=== PATIENT | female | born 1995 | race Caucasian/White ===

== ENCOUNTER 2017-01-18 05:06 | Inpatient (IN) | payer MEDICARE, OTHER ==
[~2017-01-18] VITALS: Ht 160 cm; Wt 87.0 kg
--- NOTE | ~2017-01-18 | OR ---
[facility] [address] [place], [place] [address] Draft DATE OF PROCEDURE: 01/18/17 PREOPERATIVE DIAGNOSES Intrauterine at 39 and 1. Desires primary elective section. Anxiety and bipolar in . POSTOPERATIVE DIAGNOSES Intrauterine at 39 and 1. Desires primary elective section. Anxiety and bipolar in . Breech presentation. PROCEDURE PERFORMED: Primary low-transverse section. ANESTHESIA: Spinal. ESTIMATED BLOOD LOSS: 700 mL. PRIMARY SURGEON: Yaneth Calderon DO [employer] HELICOPTER: Car Garza MD COMPLICATIONS: None. FINDINGS Viable male with 's of 7 and 8 at one and five minutes respectively. Normal uterus, tubes, and ovaries bilaterally. INDICATIONS Ms. Desai is a pleasant 21-year-old with IUP at 39 and 1 week's gestation who presents for scheduled primary elective . is complicated by bipolar and anxiety, severe PUPPS on steroid taper. The patient desires a primary low-transverse section as she is very concerned that "something bad will happen during labor" and a "history of no one in my family being able to deliver vaginally." Risks, benefits, alternatives were discussed in detail with the patient. Risks included but are not limited to bleeding, infection, injury to surrounding tissue, and increased risk in future pregnancies due to her delivery. The patient understands and wishes to proceed with the procedure. Of note, the patient presented with slightly elevated blood pressures preoperatively with max systolic blood pressure of 147. TECHNIQUE PATIENT NAME: EUGENIA DESAI OPERATIVE REPORT DATE OF : 89 PHYSICIAN: YANETH CALDERON DO REPORT #: [id number] REPORT IS CONFIDENTIAL AND NOT TO BE RELEASED WITHOUT AUTHORIZATION [facility] [address] [place], [place] [address] Draft The patient was taken the operating room where a time-out was performed to confirm correct patient, correct procedure. Spinal anesthesia was adequately established. The patient was prepped and draped in the supine position with a bump in her right hip. The skin was tested to ensure that the spinal was adequate and the patient did have some tenderness in one area in the left lower quadrant. The spinal was allowed to set up for a few more minutes and the patient reported no pain after repeat testing. A Pfannenstiel skin incision was made with surgical scalpel and carried down to and through the subcu layer. The fascia was nicked in the midline and the fascial incision was extended bilaterally using Cruz scissors. At this point, the patient became more tender on the left side and additional pain medications were given per Anesthesia. Please see their record for additional details. The rectus muscles were divided in the midline and the peritoneum was grasped with hemostats, incised sharply and peritoneal incision was extended cephalad and caudad using blunt and sharp dissection. An Lanre self-retractor was placed and the lower uterine segment identified. Hysterotomy was performed using a surgical scalpel and extended bilaterally using blunt dissection. The surgeon's hand was placed into the uterine cavity and the buttocks was noted to be the presenting part. The buttocks was elevated in the abdomen and delivered with gentle fundal pressure. The arms delivered spontaneously and the remainder of the delivered spontaneously. Upon delivery, the was vigorous and cried. Oral and nasopharynx were bulb suctioned. The cord was doubly clamped and cut and the was handed to the awaiting pediatric team for further care. Cord blood was obtained for routine analysis a n d the placenta was expressed intact with a centrally inserted 3 vessel cord. The uterus was cleared of remaining products of conception and clot and was repaired using 0 Vicryl in a running locked suture. A second imbricating suture of 0 Vicryl was applied with good hemostasis and imbrication. Small oozing was noted in the midline. This was made hemostatic using 0 Vicryl in a bkmqep-bj-mupoo suture. The patient did become more uncomfortable at this portion of the procedure in the left lower quadrant and again, Anesthesia gave the patient additional pain medication. At this point of the procedure, it was noted that the patient continued to have some elevated blood pressures and order was placed for preeclamptic profile and the patient did receive Labetalol 2 0 mg IV x1. The pericolic gutters were cleared of all remaining clots. The uterus, tubes, and ovaries were identified and found to be normal, and the peritoneum was reapproximated using 2-0 Vicryl in a running nonlocked manner after removing the Lanre uterine retractor. The rectus muscle was reapproximated in the midline using 3 interrupted sutures of 0 Vicryl. The rectus muscle was noted to be hemostatic and ACell powder was applied. The fascia was reapproximated using 0 Vicryl in a running nonlocked manner. The subcutaneous tissue was reapproximated using 2-0 Vicryl in a running suture and skin was reapproximated using 3-0 Quill suture with good hemostasis and cosmesis. The uterus was Crede'd for scant blood and the patient was then taken to the PACU in good and stable condition with her . Sponge, needle, and instrument count was correct x2 at the end of the procedure. Dr. Garza was present and participated in all portions of procedure. PATIENT NAME: GISELLEBRIANTRACI HILL OPERATIVE REPORT DATE OF : 89 PHYSICIAN: YANETH CALDERON DO REPORT #: [id number] REPORT IS CONFIDENTIAL AND NOT TO BE RELEASED WITHOUT AUTHORIZATION [address] [place], [place] [address] Draft Yaneth Calderon DO JDW/Modl /[id number] PATIENT NAME: EUGENIA DESAI OPERATIVE REPORT DATE OF : 89 PHYSICIAN: YANETH CALDERON DO REPORT #: [id number] REPORT IS CONFIDENTIAL AND NOT TO BE RELEASED WITHOUT AUTHORIZATION
--- NOTE | ~2017-01-18 | OR ---
[facility] [address] [place], [place] [address] Draft DATE OF PROCEDURE: 01/18/17 PROCEDURES Exploratory laparotomy and evacuation of rectus sheath hematoma. PREOPERATIVE DIAGNOSES Status post primary low transverse section, postoperative day #0. Abdominal hematoma. Acute blood loss anemia. Preeclampsia with severe features. POSTOPERATIVE DIAGNOSES Status post primary low transverse section, postoperative day #0. Abdominal hematoma. Acute blood loss anemia. Preeclampsia with severe features. PRIMARY SURGEON: Yaneth Calderon D.O. TRANSFER SPECIALIST: Car Garza M.D. ESTIMATED BLOOD LOSS: 500 mL. ANESTHESIA: General. COMPLICATIONS: None. FINDINGS The patient with large blood clot by CT, 17 x 13 cm. This hematoma was between the rectus sheath and the fascia. Upon taking down the fascia, a small perforating artery in the belly of the rectus was noted to be pumping. This was made hemostatic. The remainder of the abdomen and pelvis was hemostatic. INDICATIONS Ms. Desai is a pleasant 21-year-old G1, now P1 female, who delivered via primary low transverse section earlier in the day. The delivery was uncomplicated other than the patient having some intraoperative pain from a spinal with incomplete coverage of the left lower quadrant. Postoperatively, the patient developed preeclampsia with severe features with maximum systolic blood pressures into the 170s. She received labetalol IV x3 doses with the last dose approximately 9:30 in the morning. She was started on magnesium, blood pressures improved and urine output was adequate. The patient continued to have controlled blood pressures, good urine output, and no PATIENT NAME: EUGENIA DESAI OPERATIVE REPORT DATE OF : 89 PHYSICIAN: YANETH CALDERON DO REPORT #: [id number] REPORT IS CONFIDENTIAL AND NOT TO BE RELEASED WITHOUT AUTHORIZATION [facility] [address] [place], [place] [address] Draft tachycardia until early in the afternoon when she developed some hypotension. Labs were drawn that showed a precipitous drop in hemoglobin, and a CT was performed that demonstrated a large hematoma in the abdominal wall. The patient was consented for exploratory laparotomy with evacuation of hematoma. The patient did have a 2nd IV placed and 4 units of packed red blood cells were typed and crossed. Risks, benefits, alternatives were discussed in detail with the patient who understands and wishes to proceed with the procedure. TECHNIQUE The patient was taken to the operating room. A time-out was performed to confirm correct patient and correct procedure. General anesthesia was adequately established. The patient was prepped and draped in the supine position. Ancef 2 g was given per SCIP protocol and ICPs were on and running. No heparin was indicated given the acute bleed. After general anesthesia was adequately established, surgical scalpel was used to ta k e down the sutures from the prior Pfannenstiel skin incision and the wound was explored. This was taken down to the fascia and no bleeding was noted. The fascia was opened along the prior incision and a large traumatic hematoma was immediately encountered. This was gently removed and a perforating abdominal rectus artery is noted to be actively bleeding. This was clamped with a hemostat and made hemostatic with a fixdpm-uz-lkigz of 0 chromic suture. The rectus was then irrigated and remainder of clot was evacuated. Detailed examination of the surgical wound was then performed. Some small oozing was noted from the border of the rectus and the fascia of the left superior portion of the Yaneth Calderon DO JDW/Modl /[id number] PATIENT NAME: EUGENIA DESAI OPERATIVE REPORT DATE OF : 89 PHYSICIAN: YANETH CALDERON DO REPORT #: [id number] REPORT IS CONFIDENTIAL AND NOT TO BE RELEASED WITHOUT AUTHORIZATION
--- OUTSIDE RECORDS SUMMARY | ~2017-01-18 | XMS ---
Demographics + + + | Address | [address] | | | [place] [address] | + + + | Preferred Language | Unknown | + + + | Marital Status | Unknown | + + + | Mosque Affiliation | Unknown | + + + | Race | Unknown | + + + | Ethnic Group | Unknown | + + + Author + + + | Author | [facility] | + + + | Organization | [facility] | + + + | Address | [address] | | | [place] [address] | + + + | Phone | | + + + Care Team Providers + + + + | Care Newcomer Hostess Name | Role | Phone | + + + + Unavailable | Unavailable | + + + + PROBLEMS +---------+ + + +--------+ + + | Type | Condition | ICD9-CM | [id number] | Onset | Condition | SNOMED | | | | Code | Code | Dates | Status | Code | +---------+ + + +--------+ + + | Problem | Asthma | 493.92 | | | Active | [id number] | | | unpecified | | | | | | | | with | | | | | | | | acute | | | | | | | | exacerbati | | | | | | | | on | | | | | | +---------+ + + +--------+ + + | Problem | Encounter | | Z34.00 | | Active | 469304283 | | | for | | | | | | | | supervisio | | | | | | | | n of | | | | | | | | normal | | | | | | | | first | | | | | | | | , | | | | | | | | | | | | | | | | unspecifie | | | | | | | | d | | | | | | | | trimester | | | | | | +---------+ + + +--------+ + + | Problem | Asthma | | J45.909 | | Active | 076484217 | +---------+ + + +--------+ + + | Problem | Fibrocysti | 610.1 | | | Active | 96663423 | | | c disease | | | | | | | | of breast | | | | | | +---------+ + + +--------+ + + | Problem | Polycystic | 256.4 | | | Active | 27848497 | | | ovarian | | | | | | | | disease | | | | | | +---------+ + + +--------+ + + | Problem | Anxiety | | F41.9 | | Active | 786477691 | | | and | | | | | | | | depression | | | | | | +---------+ + + +--------+ + + | Problem | History of | Z87.898 | | | Active | 301089233 | | | vertigo | | | | | | +---------+ + + +--------+ + + ALLERGIES No Information SOCIAL HISTORY Never Assessed PLAN OF CARE VITAL SIGNS MEDICATIONS Unknown Medications RESULTS No Results PROCEDURES No Known procedures IMMUNIZATIONS No Known Immunizations MEDICAL (GENERAL) HISTORY + + +------+ | Type | Description | Date | + + +------+ | Medical History | Bipolar/Anxiety/Depression | | + + +------+ | Medical History | Polycystic Ovarian Syndrome | | + + +------+ | Medical History | asthma | | + + +------+ | Medical History | fibromyalgia | | + + +------+ | Medical History | Migraine | | + + +------+ | Medical History | Heart palpitations | | + + +------+ | Hospitalization History | Mental Health | | + + +------+"
--- OUTSIDE RECORDS SUMMARY | ~2017-01-18 | XMS ---
Demographics + + + | Address | [address] | | | [place] [address] | + + + | Preferred Language | Unknown | + + + | Marital Status | Unknown | + + + | Quaker Affiliation | Unknown | + + + | Race | Unknown | + + + | Ethnic Group | Unknown | + + + Author + + + | Author | [facility] | + + + | Organization | [facility] | + + + | Address | [address] | | | [place] [address] | + + + | Phone | | + + + Care Team Providers + + + + | Care Braddisher Name | Role | Phone | + + + + Unavailable | Unavailable | + + + + PROBLEMS +---------+ + + +--------+ + + | Type | Condition | ICD9-CM | HSX42-TF | Onset | Condition | SNOMED | | | | Code | Code | Dates | Status | Code | +---------+ + + +--------+ + + | Problem | Asthma | 493.92 | | | Active | [id number] | | | unpecified | | | | | | | | with | | | | | | | | acute | | | | | | | | exacerbati | | | | | | | | on | | | | | | +---------+ + + +--------+ + + | Problem | Encounter | | Z34.00 | | Active | 422027802 | | | for | | | [...] | | J45.909 | | Active | 260821311 | +---------+ + + +--------+ + + | Problem | Fibrocysti | 610.1 | | | Active | 89854502 | | | c disease | | | | | | | | of breast | | | | | | +---------+ + + +--------+ + + | Problem | Polycystic | 256.4 | | | Active | 02032009 | | | ovarian | | | | | | | | disease | | | | | | +---------+ + + +--------+ + + | Problem | Anxiety | | F41.9 | | Active | 838477916 | | | and | | | | | | | | depression | | | | | | +---------+ + + +--------+ + + | Problem | History of | Z87.898 | | | Active | 526901998 | | | vertigo | | | | | | +---------+ + + +--------+ + + ALLERGIES Unknown Allergies SOCIAL HISTORY No smoking Hx information available PLAN OF CARE VITAL SIGNS MEDICATIONS Unknown Medications RESULTS No Results PROCEDURES No Known procedures IMMUNIZATIONS No Known Immunizations"
--- OUTSIDE RECORDS SUMMARY | ~2017-01-18 | XMS ---
Demographics + + + | Address | [address] | | | [place] [address] | + + + | Preferred Language | Unknown | + + + | Marital Status | Unknown | + + + | Samaritan Affiliation | Unknown | + + + | Race | Unknown | + + + | Ethnic Group | Unknown | + + + Author + + + | Author | [facility] | + + + | Organization | [facility] | + + + | Address | [address] | | | [place] [address] | + + + | Phone | | + + + Care Team Providers + + + + | Care Relationship Counselor Name | Role | Phone | + + + + Unavailable | Unavailable | + + + + PROBLEMS +---------+ + + +--------+ + + | Type | Condition | ICD9-CM | LFM67-PG | Onset | Condition | SNOMED | | | | Code | Code | Dates | Status | Code | +---------+ + + +--------+ + + | Problem | Asthma | 493.92 | | | Active | 085003536 | | | unpecified | | | | | | | | with | | | | | | | | acute | | | | | | | | exacerbati | | | | | | | | on | | | | | | +---------+ + + +--------+ + + | Problem | Encounter | | Z34.00 | | Active | 160007022 | | | for | | | [...] | | J45.909 | | Active | 111210881 | +---------+ + + +--------+ + + | Problem | Fibrocysti | 610.1 | | | Active | 41414235 | | | c disease | | | | | | | | of breast | | | | | | +---------+ + + +--------+ + + | Problem | Polycystic | 256.4 | | | Active | 13139801 | | | ovarian | | | | | | | | disease | | | | | | +---------+ + + +--------+ + + | Problem | Anxiety | | F41.9 | | Active | 664786871 | | | and | | | | | | | | depression | | | | | | +---------+ + + +--------+ + + | Problem | History of | Z87.898 | | | Active | 029157436 | | | vertigo | | | | | | +---------+ + + +--------+ + + ALLERGIES Unknown Allergies SOCIAL HISTORY No smoking Hx information available PLAN OF CARE VITAL SIGNS MEDICATIONS Unknown Medications RESULTS No Results PROCEDURES No Known procedures IMMUNIZATIONS No Known Immunizations"
--- OUTSIDE RECORDS SUMMARY | ~2017-01-18 | XMS ---
Demographics + + + | Address | [address] | | | [place] [address] | + + + | Preferred Language | Unknown | + + + | Marital Status | Unknown | + + + | Pentecostalism Affiliation | Unknown | + + + | Race | Unknown | + + + | Ethnic Group | Unknown | + + + Author + + + | Author | [facility] | + + + | Organization | [facility] | + + + | Address | [address] | | | [place] [address] | + + + | Phone | | + + + Care Team Providers + + + + | Care Feed And Farm Management Adviser Name | Role | Phone | + + + + Unavailable | Unavailable | + + + + PROBLEMS +---------+ + + +--------+ + + | Type | Condition | ICD9-CM | [id number] | Onset | Condition | SNOMED | | | | Code | Code | Dates | Status | Code | +---------+ + + +--------+ + + | Problem | Asthma | 493.92 | | | Active | 634918518 | | | unpecified | | | | | | | | with | | | | | | | | acute | | | | | | | | exacerbati | | | | | | | | on | | | | | | +---------+ + + +--------+ + + | Problem | Encounter | | Z34.00 | | Active | 654643506 | | | for | | | [...] | | J45.909 | | Active | 295437570 | +---------+ + + +--------+ + + | Problem | Fibrocysti | 610.1 | | | Active | 20855583 | | | c disease | | | | | | | | of breast | | | | | | +---------+ + + +--------+ + + | Problem | Polycystic | 256.4 | | | Active | 69048997 | | | ovarian | | | | | | | | disease | | | | | | +---------+ + + +--------+ + + | Problem | Anxiety | | F41.9 | | Active | 774677893 | | | and | | | | | | | | depression | | | | | | +---------+ + + +--------+ + + | Problem | History of | Z87.898 | | | Active | 537418710 | | | vertigo | | | | | | +---------+ + + +--------+ + + ALLERGIES Unknown Allergies SOCIAL HISTORY No smoking Hx information available PLAN OF CARE VITAL SIGNS MEDICATIONS Unknown Medications RESULTS No Results PROCEDURES No Known procedures IMMUNIZATIONS No Known Immunizations"
--- OUTSIDE RECORDS SUMMARY | ~2017-01-18 | XMS ---
Demographics + + + | Address | [address] | | | [place] [address] | + + + | Preferred Language | Unknown | + + + | Marital Status | Unknown | + + + | Hinduism Affiliation | Unknown | + + + | Race | Unknown | + + + | Ethnic Group | Unknown | + + + Author + + + | Author | [facility] | + + + | Organization | [facility] | + + + | Address | [address] | | | [place] [address] | + + + | Phone | | + + + Care Team Providers + + + + | Care Underwear Finisher Name | Role | Phone | + + + + Unavailable | Unavailable | + + + + PROBLEMS +---------+ + + +--------+ + + | Type | Condition | ICD9-CM | YPR72-ZA | Onset | Condition | SNOMED | | | | Code | Code | Dates | Status | Code | +---------+ + + +--------+ + + | Problem | Asthma | 493.92 | | | Active | 323746608 | | | unpecified | | | | | | | | with | | | | | | | | acute | | | | | | | | exacerbati | | | | | | | | on | | | | | | +---------+ + + +--------+ + + | Problem | Encounter | | Z34.00 | | Active | 745845616 | | | for | | | [...] | | J45.909 | | Active | 885976626 | +---------+ + + +--------+ + + | Problem | Fibrocysti | 610.1 | | | Active | 55293088 | | | c disease | | | | | | | | of breast | | | | | | +---------+ + + +--------+ + + | Problem | Polycystic | 256.4 | | | Active | 71963179 | | | ovarian | | | | | | | | disease | | | | | | +---------+ + + +--------+ + + | Problem | Anxiety | | F41.9 | | Active | 392222701 | | | and | | | | | | | | depression | | | | | | +---------+ + + +--------+ + + | Problem | History of | Z87.898 | | | Active | 959500176 | | | vertigo | | | | | | +---------+ + + +--------+ + + ALLERGIES Unknown Allergies SOCIAL HISTORY No smoking Hx information available PLAN OF CARE VITAL SIGNS MEDICATIONS Unknown Medications RESULTS No Results PROCEDURES No Known procedures IMMUNIZATIONS No Known Immunizations"
--- OUTSIDE RECORDS SUMMARY | ~2017-01-18 | XMS ---
Demographics + + + | Address | [address] | | | [place] [address] | + + + | Preferred Language | Unknown | + + + | Marital Status | Unknown | + + + | Sabianism Affiliation | Unknown | + + + | Race | Unknown | + + + | Ethnic Group | Unknown | + + + Author + + + | Author | [facility] | + + + | Organization | [facility] | + + + | Address | [address] | | | [place] [address] | + + + | Phone | | + + + Care Team Providers + + + + | Care Economics Department Chair Name | Role | Phone | + + + + Unavailable | Unavailable | + + + + PROBLEMS +---------+ + + +--------+ + + | Type | Condition | ICD9-CM | STS16-CH | Onset | Condition | SNOMED | | | | Code | Code | Dates | Status | Code | +---------+ + + +--------+ + + | Problem | Asthma | 493.92 | | | Active | 960841165 | | | unpecified | | | | | | | | with | | | | | | | | acute | | | | | | | | exacerbati | | | | | | | | on | | | | | | +---------+ + + +--------+ + + | Problem | Encounter | | Z34.00 | | Active | 596757249 | | | for | | | [...] | | J45.909 | | Active | 415561202 | +---------+ + + +--------+ + + | Problem | Fibrocysti | 610.1 | | | Active | 11146260 | | | c disease | | | | | | | | of breast | | | | | | +---------+ + + +--------+ + + | Problem | Polycystic | 256.4 | | | Active | 18772089 | | | ovarian | | | | | | | | disease | | | | | | +---------+ + + +--------+ + + | Problem | Anxiety | | F41.9 | | Active | 860149489 | | | and | | | | | | | | depression | | | | | | +---------+ + + +--------+ + + | Problem | History of | Z87.898 | | | Active | 179132758 | | | vertigo | | | | | | +---------+ + + +--------+ + + ALLERGIES Unknown Allergies SOCIAL HISTORY No smoking Hx information available PLAN OF CARE VITAL SIGNS MEDICATIONS Unknown Medications RESULTS No Results PROCEDURES No Known procedures IMMUNIZATIONS No Known Immunizations"
--- OUTSIDE RECORDS SUMMARY | ~2017-01-18 | XMS ---
Demographics + + + | Address | [address] | | | [place] [address] | + + + | Preferred Language | Unknown | + + + | Marital Status | Unknown | + + + | Zoroastrian Affiliation | Unknown | + + + | Race | Unknown | + + + | Ethnic Group | Unknown | + + + Author + + + | Author | [facility] | + + + | Organization | [facility] | + + + | Address | [address] | | | [place] [address] | + + + | Phone | | + + + Care Team Providers + + + + | Care Manager Of Information Name | Role | Phone | + + + + Unavailable | Unavailable | + + + + PROBLEMS +---------+ + + +--------+ + + | Type | Condition | ICD9-CM | [id number] | Onset | Condition | SNOMED | | | | Code | Code | Dates | Status | Code | +---------+ + + +--------+ + + | Problem | Asthma | 493.92 | | | Active | [id number] | | | unpecified | | | | | | | | with | | | | | | | | acute | | | | | | | | exacerbati | | | | | | | | on | | | | | | +---------+ + + +--------+ + + | Problem | Encounter | | Z34.00 | | Active | [id number] | | | for | | | [...] | | J45.909 | | Active | 795642600 | +---------+ + + +--------+ + + | Problem | Fibrocysti | 610.1 | | | Active | 59986071 | | | c disease | | | | | | | | of breast | | | | | | +---------+ + + +--------+ + + | Problem | Polycystic | 256.4 | | | Active | 84893233 | | | ovarian | | | | | | | | disease | | | | | | +---------+ + + +--------+ + + | Problem | Anxiety | | F41.9 | | Active | 488345848 | | | and | | | | | | | | depression | | | | | | +---------+ + + +--------+ + + | Problem | History of | Z87.898 | | | Active | 546033710 | | | vertigo | | | | | | +---------+ + + +--------+ + + ALLERGIES Unknown Allergies SOCIAL HISTORY No smoking Hx information available PLAN OF CARE VITAL SIGNS MEDICATIONS Unknown Medications RESULTS No Results PROCEDURES No Known procedures IMMUNIZATIONS No Known Immunizations"
--- OUTSIDE RECORDS SUMMARY | ~2017-01-18 | XMS ---
Demographics + + + | Address | [address] | | | [place] [address] | + + + | Preferred Language | Unknown | + + + | Marital Status | Unknown | + + + | Druze Affiliation | Unknown | + + + | Race | Unknown | + + + | Ethnic Group | Unknown | + + + Author + + + | Author | [facility] | + + + | Organization | [facility] | + + + | Address | [address] | | | [place] [address] | + + + | Phone | | + + + Care Team Providers + + + + | Care Stock Worker Name | Role | Phone | + + + + Unavailable | Unavailable | + + + + PROBLEMS +---------+ + + +--------+ + + | Type | Condition | ICD9-CM | [id number] | Onset | Condition | SNOMED | | | | Code | Code | Dates | Status | Code | +---------+ + + +--------+ + + | Problem | Asthma | 493.92 | | | Active | [id number] | | | unpecified | | | | | | | | with | | | | | | | | acute | | | | | | | | exacerbati | | | | | | | | on | | | | | | +---------+ + + +--------+ + + | Problem | Encounter | | Z34.00 | | Active | 204254001 | | | for | | | [...] | | J45.909 | | Active | 203890628 | +---------+ + + +--------+ + + | Problem | Fibrocysti | 610.1 | | | Active | 58018031 | | | c disease | | | | | | | | of breast | | | | | | +---------+ + + +--------+ + + | Problem | Polycystic | 256.4 | | | Active | 93798059 | | | ovarian | | | | | | | | disease | | | | | | +---------+ + + +--------+ + + | Problem | Anxiety | | F41.9 | | Active | 885200172 | | | and | | | | | | | | depression | | | | | | +---------+ + + +--------+ + + | Problem | History of | Z87.898 | | | Active | 262942904 | | | vertigo | | | | | | +---------+ + + +--------+ + + ALLERGIES Unknown Allergies SOCIAL HISTORY No smoking Hx information available PLAN OF CARE VITAL SIGNS MEDICATIONS + + + + + + + +--------+ | Medicati | Instruct | Dosage | Frequenc | Start | End Date | Duration | Status | | on | ions | | y | Date | | | | + + + + + + + +--------+ | Metronid | Orally | 1 tablet | 12h | 28 Oliver, | 5 Charles, | 7 day(s) | Active | | azole | Twice a | | | 2017 | 2017 | | | | 500 MG | day | | | | | | | + + + + + + + +--------+ RESULTS No Results PROCEDURES No Known procedures IMMUNIZATIONS No Known Immunizations"
[~2017-01-18 05:06] MED LIST: ACETAMINOPHEN-1 EAC1 PO; BUSPIRONE HCL10 MG PO; CLARITIN10 M2 PO; CLONIDINE HCL0.2 MG PO; EFFEXOR XR75 MG PO; HYDROXYZINE PAM25 MG PO; IBUPROFEN600 MG PO; INTROVALE1 EACH PO; LEXAPRO PO; OMEGA 3 FISH O1 EACH PO; PAIN & FEVER500 MG PO; PROVENTIL HFA6.7 GM INH; RESPIRADOL PO; SALINE NOSE SPR45 ML NAS; TRAZODONE HCL100 MG; TRAZODONE HCL100 MG PO; VENLAFAXINE HC150 MG PO; VITAMIN D31000 UNIT PO
--- NOTE | 2017-01-18 08:47 | NUR ---
01/18/17 0847 Paige Gonzalez 0807-PATIENT ARRIVED TO PACU ON RA O2 SAT 100% PATIENT AWAKE PAIN 4/10 REPORTS COMFORTABLE. SPINAL LEVEL AT T10 BUT PATIENT ABLE TO WIGGLE TOES. PATIENT BABY. BP PARAMETERS SET BY DR. GARCIA NOTIFY IF SBP GREATER THAN 160 AND DBP GREATER THAN 110. FBC RN AT BEDSIDE.
--- NOTE | 2017-01-18 19:12 | NUR ---
01/18/171911 Paige Gonzalez 185-PATIENT ARRIVED TO PACU ON 8L MASK O2 SAT 100% PATIENTS ABDOMEN CDI WITH GAUZE AND ESDRAS LUIGI PAD IN PLACE. PATIENT COUGHING THICK WHITE SECRETIONS, SUCTIONED REPORTS SORE THROATED EDUCATED ON GENERAL ANESTHETIC WITH TUBE. PER DR. GARCIA RESTART MAGNESIUM IV AND LR WITH PITOCIN TO RUN TO A TOTAL OF 100ML/HR COMBINED. 1904-PATIENT REPORTS PAIN 5/10 MEDICATED WITH 0.4 MG DILAUDID IVP.
--- NOTE | 2017-01-19 09:49 | NUR ---
HOME MEDICATIONS REVIEWED FROM FB. PATIENT BROUGHT IN HOME MEDICATIONS LABELED METHYLPREDNISOLONE TABS AND VENLAFAXINE CAPS. VENLAFAXINE BOTTLE , FROM HER PREVIOUS NOT CURRENT PHARMACY, THE DOSE LISTED ON THE BOTTLE WAS NOT CURRENT, AND INSIDE THE BOTTLE THERE WERE UNMARKED TABS NOT CAPS. OBTAINED CURRENT SAFEWAY MEDICATION REFILL HISTORY. TELEPHONE CALL TO DR GARCIA, OBTAINED A NEW TELEPHONE ORDER FOR CURRENT DOSE 187.5 MG DAILY. PATIENT CONFIRMED VERBALLY THAT THIS IS HER CURRENT DOSE.
== END 2017-01-22 11:15 | disposition home or self-care (01) | DRG 765 ==
LOC: FBC 05:06
PROVIDERS: ADMIT Obstetrics & Gynecology
PROC: 10D00Z1 Extraction of Products of Conception, Low, Open Approach (ICD-10-PCS; principal; 2017-01-18 06:45)
PROC: 0W3F0ZZ Control Bleeding in Abdominal Wall, Open Approach (ICD-10-PCS; 2017-01-19)
DX: O14.24 HELLP syndrome, complicating childbirth (principal); D62 Acute posthemorrhagic anemia; Z3A.39 39 weeks gestation of pregnancy; Z37.0 Single live birth; O32.1XX0 Maternal care for breech presentation, not applicable or unspecified; F31.9 Bipolar disorder, unspecified; O99.344 Other mental disorders complicating childbirth; F41.9 Anxiety disorder, unspecified; O90.2 Hematoma of obstetric wound
CPT/HCPCS: 00840; 01961; 36415; 36430; 74177; 80053; 82570; 83735; 84156; 84550; 85025; 85027; 86850; 86900; 86901; 86920; C1763; J0330; J0690; J1100; J1170; J1885; J2250; J2270; J2274; J2370; J2405; J2590; J2704; J3010; J3475; J7030; J7120; J7509; P9016; Q9967

== ENCOUNTER 2017-10-31 18:23 | Emergency (ER) | payer MEDICARE, OTHER ==
[~2017-10-31] VITALS: Ht 160 cm; Wt 86.6 kg
== END 2017-10-31 19:36 | disposition home or self-care (01) ==
LOC: ED 18:23
DX: Z76.0 Encounter for issue of repeat prescription (principal); F31.9 Bipolar disorder, unspecified; J45.909 Unspecified asthma, uncomplicated; F32.9 Major depressive disorder, single episode, unspecified; F43.10 Post-traumatic stress disorder, unspecified; F41.9 Anxiety disorder, unspecified; Z87.891 Personal history of nicotine dependence; Z79.899 Other long term (current) drug therapy; Z88.8 Allergy status to other drugs, medicaments and biological substances
CPT/HCPCS: 99282

== ENCOUNTER 2018-05-25 15:32 | Emergency (ER) | payer MEDICARE, OTHER ==
[~2018-05-25] VITALS: Ht 160 cm; Wt 86.6 kg
[~2018-05-25 15:32] MED LIST changes: +CLONIDINE HCL0.1 MG PO; +DIFLUCAN150 MG PO; +KEFLEX500 MG PO
[2018-05-25] MEDS ORDERED: EFFEXOR XR75 MG PO (16:08)
[2018-05-25] MEDS ORDERED: CIPRO500 MG PO (16:44)
== END 2018-05-25 17:05 | disposition home or self-care (01) ==
LOC: ED 15:32
DX: N39.0 Urinary tract infection, site not specified (principal); F20.9 Schizophrenia, unspecified; F31.9 Bipolar disorder, unspecified; F43.10 Post-traumatic stress disorder, unspecified; F41.9 Anxiety disorder, unspecified; F17.200 Nicotine dependence, unspecified, uncomplicated; Z88.8 Allergy status to other drugs, medicaments and biological substances; Z79.899 Other long term (current) drug therapy
CPT/HCPCS: 81001; 99283

== ENCOUNTER 2018-07-23 09:05 | Day surgery (SDC) | payer MEDICARE, OTHER ==
[~2018-07-23] VITALS: Ht 160 cm; Wt 79.4 kg
--- NOTE | ~2018-07-23 | OR ---
[facility] [address] [place], [place] [address] Draft DATE OF OPERATION: 07/23/2018 SURGEON: Emigdio Tom MD PREOPERATIVE DIAGNOSIS: Chronic tonsillitis. POSTOPERATIVE DIAGNOSIS: Chronic tonsillitis. PROCEDURE PERFORMED: Tonsillectomy. ANESTHESIA: General orotracheal; SIMA, Cielo August. PREOPERATIVE HISTORY: Eugenia is a 22-year-old young lady with chronic tonsillitis and tonsillithiasis, taken to the operating for the above-mentioned procedures. PROCEDURE AND FINDINGS: After informed consent, the patient was taken to the operating room, placed in supine position where general orotracheal anesthesia was induced the patient procedure were verified headlight. The McIvor mouth gag was placed into suspension. Headlight exam of the pharynx showed moderately obstructive hypertrophic tonsils with thick tonsils, chronic inflammation. The left tonsil was grasped with a tenaculum, retracted medially, and removed from its fossa with mucosal sparing incision with Coblation. Field was dry after the procedure. Same procedure on the right tonsil. Tonsils were sent to pathology. Reinspection of the tonsil fossa showed no bleeding points. The pharynx was suctioned with clear of blood and secretions. The mouth gag was removed. The patient was awakened, extubated, transported to recovery room in good condition. No complications. BLOOD LOSS: Minimal. SPECIMEN: To pathology. No drains. PATIENT NAME: EUGENIA DESAI OPERATIVE REPORT DATE OF : [birth year] REPORT #: [id number] PHYSICIAN: EMIGDIO TOM MD PCP: NO PRIMARY CARE PHYSICIAN REPORT IS CONFIDENTIAL AND NOT TO BE RELEASED WITHOUT AUTHORIZATION [address] [place] [address] Draft Emigdio Tom MD /[facility] /[id number] Copies: ~ PATIENT NAME: EUGENIA DESAI OPERATIVE REPORT DATE OF : [birth year] REPORT #: [id number] PHYSICIAN: EMIGDIO TOM MD PCP: NO PRIMARY CARE PHYSICIAN REPORT IS CONFIDENTIAL AND NOT TO BE RELEASED WITHOUT AUTHORIZATION
[~2018-07-23 09:05] MED LIST changes: +CAMRESE 0.15-01 EACH PO; +CIPRO500 MG PO; +TOPAMAX200 MG PO
[2018-07-23] MEDS ORDERED: ADVIL LIQUI-GE200 MG PO (09:36)
--- NOTE | 2018-07-23 11:59 | NUR ---
07/23/18 Jason9 Paige Gonzalez 1147-PATIENT ARRIVED TO PACU ON 6L MASK NONAROUSABLE. RN HOLDING JAW TO MAINTAIN AIRWAY. SR. NO DRAINAGE NOTED FROM MOUTH. 1150-PATIENT AROUSING TO VERBAL STIMULI OPENS EYES VERY DROWSY. DENIES PAIN OR NAUSEA. DOZES BACK TO SLEEP.
--- NOTE | 2018-07-23 12:20 | NUR ---
ICED WATER AND JELLO GIVEN. FAMILY @ BEDSIDE. CALL LIGHT W/IN REACH. PATIENT TAKING SIPS OF WATER AND REPORTS INCREASED PAIN AND WINCES WITH EACH SWALLOW.
--- NOTE | 2018-07-23 13:23 | NUR ---
PATIENT REPORTS "I FEEL MUCH BETTER". PATIENT REQUESTS DC HOME. DISCHARGE INSTRUCTIONS GIVEN IN PRESENCE OF FAMILY AND BOTH VERBALIZE UNDERSTANDING. PATIENT ENCOURAGED NOT TO SMOKE FOR AT LEAST 2 WEEKS. PATIENT VERBALIZES UNDERSTANDING OF THIS AND REPORTS SHE WILL TRY AND GET SOME GUM TO HELP WITH SYMPTOMS AND HOPES TO QUIT ALTOGETHER.
[2018-07-23] MEDS ORDERED: HYDROCODONE-ACE15 M3 PO (13:38)
--- NOTE | 2018-07-23 13:44 | NUR ---
PATIENT DRESSES SELF AND TRANSFERS SELF TO AND TOLERATES THAT WELL.
== END 2018-07-23 13:40 | disposition home or self-care (01) ==
LOC: DS 09:05 → OPS 09:05 → DS 10:30 → OPS 10:30
PROVIDERS: Otolaryngology
PROC: 0C5PXZZ Destruction of Tonsils, External Approach (ICD-10-PCS; principal; 2018-07-23 10:30)
DX: J35.01 Chronic tonsillitis (principal); J45.909 Unspecified asthma, uncomplicated; F41.9 Anxiety disorder, unspecified; F17.200 Nicotine dependence, unspecified, uncomplicated; Z88.8 Allergy status to other drugs, medicaments and biological substances; Z79.899 Other long term (current) drug therapy
CPT/HCPCS: J0330; J1100; J2250; J2405; J2704; J3010; J7040; J7120

== ENCOUNTER 2018-07-30 07:16 | Emergency (ER) | payer MEDICARE, OTHER ==
[~2018-07-30] VITALS: Ht 160 cm; Wt 73.0 kg
[~2018-07-30 07:16] MED LIST changes: +ADVIL LIQUI-GE200 MG PO; +HYDROCODONE-ACE15 M3 PO
== END 2018-07-30 10:21 | disposition home or self-care (01) ==
LOC: ED 07:16
DX: J95.830 Postprocedural hemorrhage of a respiratory system organ or structure following a respiratory system procedure (principal); F20.9 Schizophrenia, unspecified; F31.9 Bipolar disorder, unspecified; J45.909 Unspecified asthma, uncomplicated; F43.10 Post-traumatic stress disorder, unspecified; F41.9 Anxiety disorder, unspecified; Z87.891 Personal history of nicotine dependence; Z88.8 Allergy status to other drugs, medicaments and biological substances; Z79.899 Other long term (current) drug therapy
CPT/HCPCS: 96374; 96375; 99283-25; J1170; J1885; J2405

== ENCOUNTER 2018-08-22 18:03 | Emergency (ER) | payer MEDICARE, OTHER ==
[~2018-08-22] VITALS: Ht 160 cm; Wt 73.0 kg
--- OUTSIDE RECORDS SUMMARY | 2018-08-22 18:06 | XMS ---
PreManage Notification: EUGENIA DESAI Security Utilization Reviewer Events No recent Security Events currently on file CRITERIA MET - [facility] - [facility] - 2 Visits in 30 Days CARE PROVIDERS There are no care providers on record at this time. Mitch has no Care Guidelines for this patient. Norma VISIT COUNT (12 MO.) 5 [facility]. TOTAL 5 NOTE: Visits indicate total known visits. ED/C VISIT TRACKING (12 MO.) 08/22/2018 18:[address] [facility] [place] TYPE: Emergency COMPLAINT: - THROAT PAIN/SWELLING 07/30/2018 07:17 [facility] [place] TYPE: Emergency COMPLAINT: - POST OP PROBLEM DIAGNOSES: - Bipolar disorder, unspecified - Postprocedural hemorrhage of a respiratory system organ or structure following a respiratory system procedure - Unspecified asthma, uncomplicated - Anxiety disorder, unspecified - Other longterm (current) drug therapy - Schizophrenia, unspecified - Allergy status to other drugs, medicaments and biological substances status - Personal history of nicotine dependence - Post-traumatic stress disorder, unspecified 05/25/2018 15:33 [facility] [place] TYPE: Emergency COMPLAINT: - POSS UTI DIAGNOSES: - Bipolar disorder, unspecified - Dysuria - Urinary tract infection, site not specified - Post-traumatic stress disorder, unspecified - Allergy status to other drugs, medicaments and biological substances status - Nicotine dependence, unspecified, uncomplicated - Anxiety disorder, unspecified - Schizophrenia, unspecified - Other longterm (current) drug therapy 02/08/2018 18:04 [facility] [place] TYPE: Emergency COMPLAINT: - POSS UTI DIAGNOSES: - Major depressive disorder, single episode, unspecified - Other local company intermodal truck driver (current) drug therapy - Urinary tract infection, site not specified - Post-traumatic stress disorder, unspecified - Dysuria - Unspecified asthma, uncomplicated - Anxiety disorder, unspecified - Allergy status to other drugs, medicaments and biological substances status 10/31/2017 18:[address] [facility] [place] TYPE: Emergency COMPLAINT: - MEDICATION REFILL DIAGNOSES: - Bipolar disorder, unspecified - Other local company intermodal truck driver (current) drug therapy - Anxiety disorder, unspecified - Encounter for issue of repeat prescription - Major depressive disorder, single episode, unspecified - Post-traumatic stress disorder, unspecified - Unspecified asthma, uncomplicated - Allergy status to other drugs, medicaments and biological substances status - Personal history of nicotine dependence INPATIENT VISIT TRACKING (12 MO.) No inpatient visits to display in this time frame [email or web address]
[2018-08-22] MEDS ORDERED: MEDROL4 MG PO (18:53)
== END 2018-08-22 19:14 | disposition home or self-care (01) ==
LOC: ED 18:03
DX: R07.0 Pain in throat (principal); F20.9 Schizophrenia, unspecified; F31.9 Bipolar disorder, unspecified; J45.909 Unspecified asthma, uncomplicated; F41.9 Anxiety disorder, unspecified; F43.10 Post-traumatic stress disorder, unspecified; Z90.89 Acquired absence of other organs; Z88.8 Allergy status to other drugs, medicaments and biological substances; Z79.899 Other long term (current) drug therapy
CPT/HCPCS: 99282

== ENCOUNTER 2018-09-23 17:55 | Emergency (ER) | payer MEDICARE, OTHER ==
[~2018-09-23] VITALS: Ht 160 cm; Wt 73.0 kg
[~2018-09-23 17:55] MED LIST changes: +MEDROL4 MG PO
--- OUTSIDE RECORDS SUMMARY | 2018-09-23 17:58 | XMS ---
PreManage Notification: EUGENIA DESAI Security Transplant Rn Events No recent Security Events currently on file CRITERIA MET - [facility] - Has Care Guidelines CARE PROVIDERS [place] COLEMAN Physician 08/23/2018-Current PHONE: Unknown Guidelines Source: [facility] Guidelines Date: 08/23/2018 Care Coordination: Receives mental health services with [facility] [facility].\T\nbsp; Please contact [facility] [facility] for mental health concerns.\T\nbsp; [place]:\T\nbsp; \T\nbsp; [place]: [phone]. Care History Medical/Surgical 08/23/2018 [facility] - PATIENT SEES DR OCASIO FOR ENT SERVICES. - PATIENT DOES HAVE A PCP - MARCO ANTONIO COLEMAN AT DR JEROME OFFICE. E.D. VISIT COUNT (12 MO.) 6 [facility] TOTAL 6 NOTE: Visits indicate total known visits. ED/UCC VISIT TRACKING (12 MO.) 09/23/2018 17:56 [facility] [place] TYPE: Emergency COMPLAINT: - FAINTING, NUMBNESS IN EXTREMITIES 08/22/2018 18:03 [facility] [place] TYPE: Emergency COMPLAINT: - THROAT PAIN/SWELLING DIAGNOSES: - Bipolar disorder, unspecified - Unspecified asthma, uncomplicated - Allergy status to other drugs, medicaments and biological substances status - Other half-way (current) drug therapy - Pain in throat - Anxiety disorder, unspecified - Schizophrenia, unspecified - Post-traumatic stress disorder, unspecified - Acute pharyngitis, unspecified - Acquired absence of other organs 07/30/2018 07:[address] [facility] [place] [place] TYPE: Emergency COMPLAINT: - POST OP PROBLEM DIAGNOSES: - Bipolar disorder, unspecified - Postprocedural hemorrhage of a respiratory system organ or structure following a respiratory system procedure - Unspecified asthma, uncomplicated - Anxiety disorder, unspecified - Other buttermaker continuous churn (current) drug therapy - Schizophrenia, unspecified - Allergy status to other drugs, medicaments and biological substances status - Personal history of nicotine dependence - Post-traumatic stress disorder, unspecified 05/25/2018 15:33 [facility] [place] TYPE: Emergency COMPLAINT: - POSS UTI DIAGNOSES: - Bipolar disorder, unspecified - Dysuria - Urinary tract infection, site not specified - Post-traumatic stress disorder, unspecified - Allergy status to other drugs, medicaments and biological substances status - Nicotine dependence, unspecified, uncomplicated - Anxiety disorder, unspecified - Schizophrenia, unspecified - Other buttermaker continuous churn (current) drug therapy 02/08/2018 18:04 [facility] [place] TYPE: Emergency COMPLAINT: - POSS UTI DIAGNOSES: - Major depressive disorder, single episode, unspecified - Other half-way (current) drug therapy - Urinary tract infection, site not specified - Post-traumatic stress disorder, unspecified - Dysuria - Unspecified asthma, uncomplicated - Anxiety disorder, unspecified - Allergy status to other drugs, medicaments and biological substances status 10/31/2017 18:[address] [facility] [place] TYPE: Emergency COMPLAINT: - MEDICATION REFILL DIAGNOSES: - Bipolar disorder, unspecified - Other half-way (current) drug therapy - Anxiety disorder, unspecified - Encounter for issue of repeat prescription - Major depressive disorder, single episode, unspecified - Post-traumatic stress disorder, unspecified - Unspecified asthma, uncomplicated - Allergy status to other drugs, medicaments and biological substances status - Personal history of nicotine dependence INPATIENT VISIT TRACKING (12 MO.) No inpatient visits to display in this time frame [email or web address]
[2018-09-23] MEDS ORDERED: VENLAFAXINE HC150 MG PO (18:31)
== END 2018-09-23 19:23 | disposition home or self-care (01) ==
LOC: ED 17:55
DX: F45.8 Other somatoform disorders (principal); F32.9 Major depressive disorder, single episode, unspecified; F41.9 Anxiety disorder, unspecified; Z90.89 Acquired absence of other organs; Z88.1 Allergy status to other antibiotic agents; Z88.8 Allergy status to other drugs, medicaments and biological substances; Z79.899 Other long term (current) drug therapy; Z87.891 Personal history of nicotine dependence
CPT/HCPCS: 99283

== ENCOUNTER 2019-02-21 19:13 | Emergency (ER) | payer MEDICARE, OTHER ==
[~2019-02-21] VITALS: Ht 157.5 cm; Wt 56.7 kg
[~2019-02-21 19:13] MED LIST changes: +BACTRIM DS TAB1 EACH PO; +PYRIDIUM200 MG PO
--- OUTSIDE RECORDS SUMMARY | 2019-02-21 19:18 | XMS ---
PreManage Notification: EUGENIA DESAI Security Registered Massage Therapist Events No recent Security Events currently on file CRITERIA MET - Group Notification - [facility] - Has Care Guidelines CARE PROVIDERS [place] COLEMAN 08/23/2018-Current PHONE: Unknown Guidelines Source: [facility] [facility] Guidelines Date: 08/23/2018 Care Coordination: Receives mental health services with [employer].\T\nbsp; Please contact [employer] for mental health concerns.\T\nbsp; [place]:\T\nbsp; [phone]\T\nbsp; [place]: [phone]. Care History Medical/Surgical 11/18/2018 [facility] - CHW CALLED PATIENT-UNABLE TO LEAVE A MESSAGE, VOICEMAIL BOX IS FULL. 10/07/2018 [facility] - PATIENT WAS LAST SEEN BY PCP IN MAY 2018. - PLEASE REFER PATIENT TO PCP OFFICE FOR ED FOLLOW UP CARE. 08/23/2018 [facility] - PATIENT SEES DR OCASIO FOR ENT SERVICES. - PATIENT DOES HAVE A PCP - MARCO ANTONIO COLEMAN AT DR JEROME OFFICE. E.D. VISIT COUNT (12 MO.) 7 [facility] TOTAL 7 NOTE: Visits indicate total known visits. ED/UCC VISIT TRACKING (12 MO.) 02/21/2019 19:13 [facility] [place] TYPE: Emergency COMPLAINT: - COUGH 11/17/2018 23:53 [facility] [place] TYPE: Emergency COMPLAINT: - URINE PROBLEM DIAGNOSES: - Dysuria - Allergy status to oth drug/meds/biol subst status - Other intermission coordinator (current) drug therapy - Urinary tract infection, site not specified 10/04/2018 23:38 [facility] [place] TYPE: Emergency COMPLAINT: - URINE PROBLEM DIAGNOSES: - Anxiety disorder, unspecified - Acquired absence of other organs - Dysuria - Personal history of nicotine dependence - Allergy status to other antibiotic agents status - Major depressive disorder, single episode, unspecified - Other intermission coordinator (current) drug therapy - Allergy status to oth drug/meds/biol subst status - Urinary tract infection, site not specified 09/23/2018 17:56 [facility] [place] TYPE: Emergency COMPLAINT: - FAINTING, NUMBNESS IN EXTREMITIES DIAGNOSES: - Allergy status to oth drug/meds/biol subst status - Major depressive disorder, single episode, unspecified - Personal history of nicotine dependence - Other somatoform disorders - Acquired absence of other organs - Anxiety disorder, unspecified - Other intermission coordinator (current) drug therapy - Dizziness and giddiness - Allergy status to other antibiotic agents status 08/22/2018 18:03 [facility] [place] TYPE: Emergency COMPLAINT: - THROAT PAIN/SWELLING DIAGNOSES: - Bipolar disorder, unspecified - Unspecified asthma, uncomplicated - Allergy status to oth drug/meds/biol subst status - Other intermission coordinator (current) drug therapy - Pain in throat - Anxiety disorder, unspecified - Schizophrenia, unspecified - Post-traumatic stress disorder, unspecified - Acute pharyngitis, unspecified - Acquired absence of other organs 07/30/2018 07:17 [facility] [place] TYPE: Emergency COMPLAINT: - POST OP PROBLEM DIAGNOSES: - Bipolar disorder, unspecified - 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 - Unspecified asthma, uncomplicated - Anxiety disorder, unspecified - Other longterm (current) drug therapy - Schizophrenia, unspecified - Allergy status to oth drug/meds/biol subst status - Personal history of nicotine dependence - Post-traumatic stress disorder, unspecified 05/25/2018 15:33 [facility] [place] TYPE: Emergency COMPLAINT: - POSS UTI DIAGNOSES: - Bipolar disorder, unspecified - Dysuria - Urinary tract infection, site not specified - Post-traumatic stress disorder, unspecified - Allergy status to oth drug/meds/biol subst status - Nicotine dependence, unspecified, uncomplicated - Anxiety disorder, unspecified - Schizophrenia, unspecified - Other intermission coordinator (current) drug therapy INPATIENT VISIT TRACKING (12 MO.) No inpatient visits to display in this time frame [email or web address]
[2019-02-21] MEDS ORDERED: TOPAMAX25 MG PO (19:42)
[2019-02-21] MEDS ORDERED: OMEPRAZOLE20 MG PO (19:42)
[2019-02-21] MEDS ORDERED: NASAL ALLERGY16.9 ML NAS (19:44)
[2019-02-21] MEDS ORDERED: URINARY PAIN97.5 MG PO (19:44)
[2019-02-21] MEDS ORDERED: PROVENTIL HFA6.7 GM INH (21:30)
[2019-02-21] MEDS ORDERED: ADULT WAL-100 MG/5 M PO (21:30)
== END 2019-02-21 21:40 | disposition home or self-care (01) ==
LOC: ED 19:13
DX: J06.9 Acute upper respiratory infection, unspecified (principal); F32.9 Major depressive disorder, single episode, unspecified; F41.9 Anxiety disorder, unspecified; Z88.3 Allergy status to other anti-infective agents; Z88.8 Allergy status to other drugs, medicaments and biological substances; Z79.899 Other long term (current) drug therapy
CPT/HCPCS: 99283

== ENCOUNTER 2019-07-08 09:08 | Emergency (ER) | payer MEDICARE, OTHER ==
[~2019-07-08] VITALS: Ht 157.5 cm; Wt 56.7 kg
[~2019-07-08 09:08] MED LIST changes: +ADULT WAL-100 MG/5 M PO; +NASAL ALLERGY16.9 ML NAS; +OMEPRAZOLE20 MG PO; +TOPAMAX25 MG PO; +URINARY PAIN97.5 MG PO
--- OUTSIDE RECORDS SUMMARY | 2019-07-08 09:12 | XMS ---
PreManage Notification: EUGENIA DESAI Security Branch Operation Evaluation Manager Events No recent Security Events currently on file CRITERIA MET - Group Notification - [facility] - Has Care Guidelines CARE PROVIDERS [place] COLEMAN Physician Editor At Large 08/23/2018-Current PHONE: Unknown ABBIE MILLER [facility] 02/24/2019-Current PHONE: [phone] [facility] Guidelines Date: 08/23/2018 Care Coordination: Receives mental health services with [facility].\T\nbsp; Please contact [employer] for mental health concerns.\T\nbsp; [facility]T\nbsp; \T\nbsp; [place]: [phone]. Care History Medical/Surgical 11/18/2018 [facility] - CHW CALLED PATIENT-UNABLE TO LEAVE A MESSAGE, VOICEMAIL BOX IS FULL. 10/07/2018 [facility] - PATIENT WAS LAST SEEN BY PCP IN MAY 2018. - PLEASE REFER PATIENT TO PCP OFFICE FOR ED FOLLOW UP CARE. 08/23/2018 [facility] - PATIENT SEES DR OCASIO FOR ENT SERVICES. - PATIENT DOES HAVE A PCP - MARCO ANTONIO COLEMAN AT DR JEROME OFFICE. Norma VISIT COUNT (12 MO.) 7 [facility] TOTAL 7 NOTE: Visits indicate total known visits. ED/UCC VISIT TRACKING (12 MO.) [facility]2019 [facility] COMPLAINT: - POSS UTI 02/21/2019 19:13 [facility] [place] TYPE: Emergency COMPLAINT: - COUGH DIAGNOSES: - Other intermediate (current) drug therapy - Anxiety disorder, unspecified - Cough - Allergy status to other anti-infective agents status - Major depressive disorder, single episode, unspecified - Acute upper respiratory infection, unspecified - Allergy status to oth drug/meds/biol subst status 11/17/2018 23:53 [facility] [place] TYPE: Emergency COMPLAINT: - URINE PROBLEM DIAGNOSES: - Dysuria - Allergy status to oth drug/meds/biol subst status - Other intermediate (current) drug therapy - Urinary tract infection, site not specified 10/04/2018 23:38 [facility] [place] TYPE: Emergency COMPLAINT: - URINE PROBLEM DIAGNOSES: - Anxiety disorder, unspecified - Acquired absence of other organs - Dysuria - Personal history of nicotine dependence - Allergy status to other antibiotic agents status - Major depressive disorder, single episode, unspecified - Other exterminator termite (current) drug therapy - Allergy status to [...] organs - Anxiety disorder, unspecified - Other intermediate (current) drug therapy - Dizziness and giddiness - Allergy status to other antibiotic agents status 08/22/2018 18:03 [facility] [place] TYPE: Emergency COMPLAINT: - THROAT PAIN/SWELLING DIAGNOSES: - Bipolar disorder, unspecified - Unspecified asthma, uncomplicated - Allergy status to oth drug/meds/biol subst status - Other intermediate (current) drug therapy - Pain in throat [...] uncomplicated - Anxiety disorder, unspecified - Other intermediate (current) drug therapy - Schizophrenia, unspecified - Allergy status to oth drug/meds/biol subst status - Personal history of nicotine dependence - Post-traumatic stress disorder, unspecified INPATIENT VISIT TRACKING (12 MO.) No inpatient visits to display in this time frame [email or web address]
== END 2019-07-08 09:26 | disposition home or self-care (01) ==
LOC: ED 09:08
DX: R30.0 Dysuria (principal)

== ENCOUNTER 2020-06-13 10:55 | Emergency (ER) | payer MEDICARE, OTHER ==
[~2020-06-13] VITALS: Ht 157.5 cm; Wt 73.0 kg
--- OUTSIDE RECORDS SUMMARY | 2020-06-13 10:58 | XMS ---
PreManage Notification: EUGENIA DESAI Security Powerhouse Engineer Events No recent Security Events currently on file CRITERIA MET - Group Notification CARE PROVIDERS LAURA COLEMAN Physician Bingo Cashier 08/23/2018-Current PHONE: Unknown ABBIE MILLER [facility] 02/24/2019-Current PHONE: [phone] Care Guidelines exist for the following facilities: [facility] ( 08/23/2018 ) Care History Medical/Surgical 11/18/2018 [facility] - CHW CALLED PATIENT-UNABLE TO LEAVE A MESSAGE, VOICEMAIL BOX IS FULL. 10/07/2018 [facility] - PATIENT WAS LAST SEEN BY PCP IN MAY 2018. - PLEASE REFER PATIENT TO PCP OFFICE FOR ED FOLLOW UP CARE. 08/23/2018 [facility] - PATIENT SEES DR OCASIO FOR ENT SERVICES. - PATIENT DOES HAVE A PCP - MARCO ANTONIO COLEMAN AT DR QUEENIE SOLANO E.D. VISIT COUNT (12 MO.) 2 [facility] TOTAL 2 NOTE: Visits indicate total known visits. ED/UCC VISIT TRACKING (12 MO.) 06/13/2020 10:56 [facility] [place] TYPE: Emergency COMPLAINT: - VAGINAL PAIN, URINE PROBLEM 07/08/2019 09:09 [facility] [place] TYPE: Emergency COMPLAINT: - POSS UTI DIAGNOSES: - Dysuria INPATIENT VISIT TRACKING (12 MO.) No inpatient visits to display in this time frame [id number]
[2020-06-13] MEDS ORDERED: DOXYCYCLINE HY100 MG PO (11:13)
[2020-06-13] MEDS ORDERED: FLAGYL500 MG PO (11:13)
== END 2020-06-13 16:20 | disposition home or self-care (01) ==
LOC: ED 10:55
DX: R10.2 Pelvic and perineal pain (principal); J45.909 Unspecified asthma, uncomplicated; Z87.891 Personal history of nicotine dependence; Z88.8 Allergy status to other drugs, medicaments and biological substances; Z79.899 Other long term (current) drug therapy
CPT/HCPCS: 80053; 81001; 83690; 85025; 96374; 96375; 99283-25; J1885; J2405; J7030